=== PATIENT | female | born 1945 | race Caucasian/White ===

== ENCOUNTER 2021-08-10 13:17 | Emergency (ER) | payer MEDICARE ==
[~2021-08-10] VITALS: Ht 152.4 cm; Wt 68.0 kg
[2021-08-10 15:32] VITALS: BP 173/71
== END 2021-08-10 15:47 | disposition home or self-care (01) ==
LOC: ER 13:17
DX: S30.0XXA Contusion of lower back and pelvis, initial encounter (principal); Z90.89 Acquired absence of other organs; W17.89XA Other fall from one level to another, initial encounter; Y93.89 Activity, other specified; Y92.89 Other specified places as the place of occurrence of the external cause; Y99.8 Other external cause status